=== PATIENT | male | born 1990 | race Caucasian/White ===

== ENCOUNTER 2019-10-04 11:53 | Inpatient (IN) ==
[2019-10-04 12:31] LABS: Basophils # 0.2 10*3/uL (0.0-0.2); Basophils % 1.6 % (0.0-0.8); Eosinophils # 0.3 10*3/uL (0.0-0.87); Eosinophils % 2.2 % (0.00-10.9); Hematocrit 47.1 VOL% (42.0-52.0); Immature Granulocytes % 0.4 %; Immature Granulocytes Absolute 0.05 #; Lymphocytes # 2.9 10*3/uL (1.4-4.0); Lymphocytes % 20.7 % (21.2-54.2); Mean Corpuscular Volume 87.2 FL (87-102); Mean Platelet Volume 10.2 FL (9.6-12.0); Monocytes % 10.9 % (1.7-12.7); Neutrophils % 64.2 % (38.7-73.9); Platelet Count 393 T/CUMM (130-400); Red Cell Distribution Width 13.2 % (9.3-17.3); White Blood Count 13.8 T/CUMM (4-12)
[2019-10-04 12:54] LABS: Alanine Aminotransferase 70 U/L (16-61); Albumin 4.1 G/DL (3.4-5.0); Alkaline Phosphatase 74 U/L (45-117); Aspartate Amino Transferase 25 U/L (0-37); Blood Urea Nitrogen 14 MG/DL (7-18); Calcium 9.2 MG/DL (8.5-10.1); Estimated Glom Filtration Rate 145 ML/MIN; Glucose 84 MG/DL (74-106); Osmolality,Calculated 274.7 MOS/KG (273-304); Total Protein 8.6 G/DL (6.4-8.3)
[2019-10-04 12:58] LABS: Salicylate < 2.8 MG/DL (2.8-20)
[2019-10-04 12:59] LABS: Acetaminophen < 2.0 UG/ML (10-30)
[2019-10-04 13:14] LABS: Barbiturates Screen,Urine Negative (Negative); Benzodiazepines Screen,Urine Negative (Negative); Cannabinoid Screen,Urine Positive (Negative); Opiate Screen,Urine Negative (Negative); Phencyclidine Screen,Urine Negative (Negative)
[2019-10-04] MEDS ORDERED: ACETAMINOPHEN 325 MG TABLET PO PRN (14:42)
[2019-10-04] MEDS ORDERED: hydrALAZINE 20 MG/1 ML VIAL IV PRN (14:42)
[2019-10-04] MEDS ORDERED: diphenhydrAMINE CAP 25 MG CAPSULE PO PRN (14:42)
[2019-10-04] MEDS ORDERED: DEXTROSE 50% 25 GM/50 ML VIAL IV PRN (14:42)
[2019-10-04] MEDS ORDERED: GLUCAGON 1 MG VIAL IM PRN (14:42)
[2019-10-04] MEDS ORDERED: HALOPERIDOL 5 MG/ML AMP IV PRN (14:45)
[2019-10-04 15:09] LABS: Thyroid Stimulating Hormone 1.07 uIU/ml (0.358-3.74)
[2019-10-04 15:52] LABS: Hepatitis B Core IgM Quant 0.17 Index; Hepatitis B Surface Ag Quant 0.12 Index; Hepatitis B Surface Ag Result Negative (Negative); Hepatitis C Virus Ab Quant 0.08 Index; Hepatitis C Virus Ab Result Negative (Negative)
[2019-10-04] MEDS ORDERED: LACTULOSE 320 GM/480 ML BOTTLE RECTAL ONE (16:00)
[2019-10-04 16:32] LABS: Vitamin B12 561 PG/ML (211-911)
[2019-10-04 17:37] LABS: HIV Antigen/Antibody Result Nonreactive (Nonreactive)
[2019-10-04] MEDS: SODIUM CHLORIDE 0.9% 1,000 ML IV SCH (18:34)
[2019-10-04] MEDS: ENOXAPARIN 40 MG/0.4 ML SYRINGE SUBCUT SCH (20:48)
[2019-10-04] MEDS: LACTULOSE 20 GM/30 ML UDCUP PO SCH (20:48)
[2019-10-04] MEDS: chlordiazePOXIDE 10 MG CAPSULE PO SCH (20:48)
[2019-10-05] MEDS: ONDANSETRON 4 MG/2 ML VIAL IV PRN ×2 (00:22→04:39)
[2019-10-05] MEDS: SODIUM CHLORIDE 0.9% 1,000 ML IV SCH ×2 (03:21→07:48)
[2019-10-05] MEDS: ZIPRASIDONE 20 MG/1 ML VIAL IM PRN ×2 (04:05→14:42)
[2019-10-05 05:19] LABS: Basophils # 0.2 10*3/uL (0.0-0.2); Basophils % 2.2 % (0.0-0.8); Eosinophils # 0.3 10*3/uL (0.0-0.87); Hematocrit 46.5 VOL% (42.0-52.0); Hemoglobin 15.6 GM/DL (14.0-18.0); Immature Granulocytes % 0.3 %; Immature Granulocytes Absolute 0.03 #; Lymphocytes # 2.3 10*3/uL (1.4-4.0); Lymphocytes % 20.4 % (21.2-54.2); Mean Corpuscular HGB Conc 33.5 GM/DL (32-36); Mean Corpuscular Volume 87.6 FL (87-102); Neutrophils % 65.1 % (38.7-73.9); Platelet Count 361 T/CUMM (130-400); Red Blood Count 5.31 MC/CUMM (3.8-5.5); Red Cell Distribution Width 13.1 % (9.3-17.3); White Blood Count 11.1 T/CUMM (4-12)
[2019-10-05 05:54] LABS: Bilirubin,Total 1.1 MG/DL (0.2-1.0); Calcium 9.1 MG/DL (8.5-10.1); Osmolality,Calculated 271.8 MOS/KG (273-304); Total Protein 8.2 G/DL (6.4-8.3)
[2019-10-05] MEDS ORDERED: ZIPRASIDONE 20 MG/1 ML VIAL IM ONE (07:55)
[2019-10-05] MEDS: chlordiazePOXIDE 10 MG CAPSULE PO SCH ×3 (08:12→21:07)
[2019-10-05] MEDS: LACTULOSE 20 GM/30 ML UDCUP PO SCH ×2 (08:12→21:07)
[2019-10-05] MEDS ORDERED: MAGNESIUM SULF RIDER 4 GM in PREMIX 1 EACH IV PRN (09:41)
[2019-10-05] MEDS ORDERED: MAGNESIUM SULF RIDER 2 GM in PREMIX 1 EACH IV PRN (09:41)
[2019-10-05] MEDS ORDERED: POTASSIUM CHLORIDE 20 MEQ TABLET PO PRN (09:41)
[2019-10-05] MEDS: ENOXAPARIN 40 MG/0.4 ML SYRINGE SUBCUT SCH (21:07)
[2019-10-06] MEDS: ZIPRASIDONE 20 MG/1 ML VIAL IM PRN ×3 (00:15→16:12)
[2019-10-06] MEDS ORDERED: HALOPERIDOL 5 MG/ML AMP IM PRN ×2 (01:43→03:40)
[2019-10-06] MEDS: diphenhydrAMINE 50 MG/1 ML VIAL IM PRN ×2 (03:50→17:50)
[2019-10-06] MEDS: LORazepam 2 MG/1 ML VIAL IM PRN ×2 (03:50→19:50)
[2019-10-06 06:58] LABS: Albumin 4.5 G/DL (3.4-5.0); Calcium 9.8 MG/DL (8.5-10.1); Osmolality,Calculated 274.8 MOS/KG (273-304); Total Protein 9.1 G/DL (6.4-8.3)
[2019-10-06] MEDS: LACTULOSE 20 GM/30 ML UDCUP PO SCH ×3 (09:16→21:00)
[2019-10-06] MEDS: chlordiazePOXIDE 10 MG CAPSULE PO SCH (09:16)
[2019-10-06] MEDS: chlordiazePOXIDE 25 MG CAPSULE PO SCH ×2 (16:12→21:00)
[2019-10-06] MEDS: NICOTINE 21 MG/24 HR PATCH TRANSDERM SCH (16:29)
[2019-10-06] MEDS: ENOXAPARIN 40 MG/0.4 ML SYRINGE SUBCUT SCH (21:01)
[2019-10-06] MEDS ORDERED: HALOPERIDOL 5 MG/ML AMP IV PRN (21:34)
[2019-10-06] MEDS ORDERED: LORazepam 2 MG/1 ML VIAL IV PRN (21:35)
[2019-10-06] MEDS ORDERED: diphenhydrAMINE 50 MG/1 ML VIAL IV PRN (21:36)
[2019-10-07] MEDS: ZIPRASIDONE 20 MG/1 ML VIAL IM PRN (01:41)
[2019-10-07] MEDS: LACTULOSE 20 GM/30 ML UDCUP PO SCH ×2 (08:46→22:45)
[2019-10-07] MEDS: NICOTINE 21 MG/24 HR PATCH TRANSDERM SCH (09:09)
[2019-10-07] MEDS: chlordiazePOXIDE 25 MG CAPSULE PO SCH ×5 (09:09→22:47)
[2019-10-07] MEDS: ENOXAPARIN 40 MG/0.4 ML SYRINGE SUBCUT SCH (22:48)
[2019-10-08 05:24] VITALS: BP 133/91
[2019-10-08] MEDS: chlordiazePOXIDE 25 MG CAPSULE PO SCH (08:14)
[2019-10-08] MEDS: NICOTINE 21 MG/24 HR PATCH TRANSDERM SCH (08:14)
[2019-10-08] MEDS: LACTULOSE 20 GM/30 ML UDCUP PO SCH (08:14)
[2019-10-08] MEDS ORDERED: chlordiazePOXIDE 25 MG CAPSULE PO SCH (09:00)
== END 2019-10-08 11:45 | disposition home or self-care (01) | DRG 917 ==
LOC: N.ED 11:53 → N.EDINP 11:53 → SUATTDRO 14:42 → N.TELES 15:11
PROVIDERS: ADMIT Internal Medicine; ATTEND Internal Medicine